=== PATIENT | female | born 1975 | race African-American/Black ===

== ENCOUNTER 2017-01-08 00:26 | Emergency (ER) | payer SELFPAY ==
[~2017-01-08] VITALS: Ht 152.4 cm; Wt 83.3 kg
[~2017-01-08 00:26] MED LIST: ENDOCET 5-3251 EACH PO; MOTRIN800 MG PO
[2017-01-08 00:52] LABS: HEMATOCRIT 32.2 % (36.0-46.0); MCH 30.5 PG (29.0-34.0); MCHC 32.9 G/DL (30.0-36.0); MCV 92.8 FL (83-99); MEAN PLAT.VOLUME 9.4 uM^3 (9.5-12.4); PLATELET COUNT 319 K/uL (156-360); RBC DIS.WIDTH-SD 47.4 % (39-53); RED BLOOD COUNT 3.47 M/uL (3.80-5.20); WHITE BLOOD COUNT 6.8 K/uL (4.1-10.2)
[2017-01-08 02:46] LABS: ADD MIUA? YES; BILIRUBIN NEGATIVE; BLOOD MODERATE; COLOR STRAW ((YELLOW)); GLUCOSE (STRIP) NEGATIVE; KETONES NEGATIVE; LEUKOCYTES NEGATIVE; NITRITE NEGATIVE; PROTEIN (STRIP) NEGATIVE; SPECIFIC GRAVITY 1.004 (1.000-1.030); UROBILINOGEN 0.2 MG/DL (0.2-1.0)
[2017-01-08 02:48] LABS: BACTERIA NONE SEEN /HPF; EPITHELIAL CELLS 1+ /HPF; MUCUS NONE SEEN /LPF; RED BLOOD CELLS 0-5 /HPF (0-5); UCUL ADDED? NO; WHITE BLOOD CELLS 0-5 /HPF (0-5)
[2017-01-08] MEDS ORDERED: PRENATAL TABLE1 EAC3 PO (02:59)
[2017-01-08 03:14] VITALS: BP 132/74
== END 2017-01-08 03:15 | disposition home or self-care (01) ==
LOC: EME 00:26
DX: O20.8 Other hemorrhage in early pregnancy (principal); O09.521 Supervision of elderly multigravida, first trimester; Z3A.10 10 weeks gestation of pregnancy; Z91.040 Latex allergy status
CPT/HCPCS: 76801; 81003; 84702; 85027; 86900; 86901; 99281; 99283

== ENCOUNTER 2017-07-20 07:57 | Inpatient (IN) | payer OTHER ==
[~2017-07-20] VITALS: Ht 152.4 cm; Wt 92.5 kg
[~2017-07-20 07:57] MED LIST changes: +IRON325 M1 PO; +KEFLEX250 MG PO; +PRENATAL TABLE1 EAC3 PO
[2017-07-20 08:17] VITALS: BP 142/92
[2017-07-20 09:07] LABS: BASOPHIL (%) 0.2 % (0-1); EOSINOPHIL (%) 0.4 % (0-5); IMMATURE GRANULOCYTE (%) 0.6 % (0.0-0.7); LYMPHOCYTE (%) 30.3 % (15-42); LYMPHOCYTE COUNT 1.5 K/uL (1.0-2.8); MCHC 33.3 G/DL (30.0-36.0); MONOCYTE (%) 11.5 % (3-12); MONOCYTE COUNT 0.6 K/uL (0-0.8); NEUTROPHIL COUNT 2.8 K/uL (1.8-6.4); PLATELET COUNT 225 K/uL (156-360); RBC DIS.WIDTH-CV 15.1 % (11.8-14.6); RBC DIS.WIDTH-SD 52.4 % (39-53); RED BLOOD COUNT 3.75 M/uL (3.80-5.20); WHITE BLOOD COUNT 4.9 K/uL (4.1-10.2)
[2017-07-20 09:17] LABS: ALBUMIN 2.8 g/dL (3.2-4.8)
[2017-07-20 09:18] LABS: CHLORIDE 112 mEq/L (99-109); POTASSIUM 4.4 mEq/L (3.7-5.4); SODIUM 140 mEq/L (136-147)
[2017-07-20 09:20] LABS: GLUCOSE 82 mg/dL (70-99); TOTAL PROTEIN 5.8 g/dL (6.4-8.3)
[2017-07-20 09:22] LABS: TOTAL BILIRUBIN 0.4 mg/dL (0.0-1.0)
[2017-07-20 09:23] LABS: ALKALINE PHOSPHATASE 197 IU/L (3-129); CREATININE 0.8 mg/dL (0.6-1.3); GFR ESTIMATE (CALCULATED) > 59 mL/min/
[2017-07-20 09:25] LABS: AST (GOT) 16 IU/L (2-34); UREA NITROGEN (BUN) 6 mg/dL (9-23)
[2017-07-20 09:26] LABS: ALT (GPT) 9 IU/L (3-49)
[2017-07-20] MEDS ORDERED: ENDOCET 5-3251 EACH PO (11:51)
[2017-07-20] MEDS ORDERED: IBUPROFEN800 MG PO (11:51)
[2017-07-20 14:01] VITALS: BP 122/80
[2017-07-20 18:38] LABS: UR CREATININE CONCENTRATION 110.8 MG/DL
[2017-07-21 06:52] LABS: BASOPHIL (%) 0.1 % (0-1); EOSINOPHIL (%) 0.1 % (0-5); HEMATOCRIT 28.8 % (36.0-46.0); IMMATURE GRANULOCYTE (%) 0.4 % (0.0-0.7); LYMPHOCYTE (%) 10.8 % (15-42); LYMPHOCYTE COUNT 1.1 K/uL (1.0-2.8); MCH 32.8 PG (29.0-34.0); MCV 99.3 FL (83-99); MONOCYTE (%) 7.2 % (3-12); MONOCYTE COUNT 0.7 K/uL (0-0.8); NEUTROPHIL (%) 81.4 % (45-76); NEUTROPHIL COUNT 8.1 K/uL (1.8-6.4); PLATELET COUNT 205 K/uL (156-360); RBC DIS.WIDTH-CV 14.9 % (11.8-14.6); RBC DIS.WIDTH-SD 53.8 % (39-53)
[2017-07-21 06:55] LABS: HEMOGLOBIN 9.5 G/DL (11.9-15.5)
[2017-07-21 19:30] VITALS: BP 118/58
[2017-07-22 07:45] VITALS: BP 145/85
[2017-07-22 11:40] VITALS: BP 146/82
[2017-07-22 23:45] VITALS: BP 149/89
[2017-07-23 11:51] VITALS: BP 150/88
[2017-07-23 12:49] VITALS: BP 140/75
== END 2017-07-23 13:50 | disposition home or self-care (01) | DRG 765 ==
LOC: LDRP-OP 07:57 → 2WEST 07:58
PROVIDERS: Advanced Practice Midwife; Obstetrics & Gynecology Obstetrics
DX: O34.211 Maternal care for low transverse scar from previous cesarean delivery (principal); Z30.2 Encounter for sterilization; L91.0 Hypertrophic scar; O42.92 Full-term premature rupture of membranes, unspecified as to length of time between rupture and onset of labor; O34.13 Maternal care for benign tumor of corpus uteri, third trimester; D25.2 Subserosal leiomyoma of uterus; O99.02 Anemia complicating childbirth; D62 Acute posthemorrhagic anemia; D50.9 Iron deficiency anemia, unspecified; O13.4 Gestational [pregnancy-induced] hypertension without significant proteinuria, complicating childbirth; O99.214 Obesity complicating childbirth; E66.9 Obesity, unspecified; Z68.36 Body mass index [BMI] 36.0-36.9, adult; Z91.040 Latex allergy status; Z3A.38 38 weeks gestation of pregnancy; Z37.0 Single live birth
CPT/HCPCS: 80053; 82570; 84156; 85025; 86850; 86900; 86901; 87086; 88302; J0690; J1170; J2250; J2274; J2405; J2590; J7120